=== PATIENT | male | born 1950 | race Caucasian/White ===

== ENCOUNTER → 2018-10-05 19:36 | Outpatient (CLI) | payer MEDICARE ==
[2012-10-08 11:13] VITALS: BMI 25.8
[~2018-10-05 19:36] MED LIST: AMBIEN10 MG PO; GLUCOPHAGE1000 MG PO; KLONOPIN0.5 MG PO; MOBIC7.5 MG PO; NEURONTIN 300300 MG PO; PERCOCET 10/3251 TA1 PO; PRINIVIL20 MG PO; TENORMIN50 MG PO; ULTRAM50 MG PO; ZANAFLEX4 MG PO; ZOLOFT100 MG
[2018-10-05 23:08] LABS: ERYTHROCYTE SEDIMENTATION RATE 128 mm/hr (0-20)
== END | disposition home or self-care (01) ==
LOC: D.LABREF 19:36
PROVIDERS: ATTEND Orthopaedic Surgery
DX: T84.54XD Infection and inflammatory reaction due to internal left knee prosthesis, subsequent encounter (principal); Z47.89 Encounter for other orthopedic aftercare

== ENCOUNTER → 2018-10-19 14:45 | Outpatient (CLI) | payer MEDICARE ==
[2012-10-08 11:13] VITALS: BMI 25.8
[2018-10-19 16:28] LABS: ERYTHROCYTE SEDIMENTATION RATE 35 mm/hr (0-20)
== END | disposition home or self-care (01) ==
LOC: D.LABREF 14:45
PROVIDERS: ATTEND Orthopaedic Surgery
DX: T84.53XA Infection and inflammatory reaction due to internal right knee prosthesis, initial encounter (principal); Z51.81 Encounter for therapeutic drug level monitoring; Z79.2 Long term (current) use of antibiotics

== ENCOUNTER → 2018-11-16 14:09 | Outpatient (CLI) | payer MEDICARE ==
[2012-10-08 11:13] VITALS: BMI 25.8
== END | disposition home or self-care (01) ==
LOC: D.LABREF 14:09
PROVIDERS: ATTEND Orthopaedic Surgery
DX: T84.54XA Infection and inflammatory reaction due to internal left knee prosthesis, initial encounter (principal)

== ENCOUNTER → 2020-08-25 18:37 | Outpatient (CLI) | payer OTHER ==
[2012-10-08 11:13] VITALS: BMI 25.8
== END | disposition home or self-care (01) ==
LOC: D.LABREF 18:37
PROVIDERS: ATTEND Family Medicine
DX: Z16.21 Resistance to vancomycin (principal)